=== PATIENT | female | born 1955 | race African-American/Black ===

== ENCOUNTER 2016-10-31 03:10 | Emergency (ER) | payer MEDICAID, OTHER ==
[~2016-10-31] VITALS: Ht 162.6 cm; Wt 81.6 kg
[~2016-10-31 03:10] MED LIST: ADVAIR 100-501 EACH INH; ALBUTEROL SULF8.5 GM INH; ANUSOL-HC25 MG RECTAL; CYCLOBENZAPRINE10 MG ORAL; IBUPROFEN600 M1 PO; IBUPROFEN600 MG ORAL; MUCINEX600 MG PO; NKM; NORCO 5-325 TA1 EAC1 ORAL; NORCO 5-325 TA1 EACH PO
--- NOTE | 2016-10-31 03:42 | Emergency Room Report ---
History of Present Illness General Chief Complaint: General Complaint Source: Patient Present Illness HPI Patient presents with body pain. The areas where she is affected is her upper back and lower back. She has nerve pain radiating down her right arm and also her right leg. She denies any fevers, chills, shortness of breath, chest pain, nausea, vomiting or diarrhea. She's had arthritis in the past. She's not taking any pain medicine aside from Excedrin. This helped minimally. She has not seen her doctor for a while. Pain rated at 10/10 burning aching radiating. She has sciatica and the lower back feels like this. She also complains about left lower quadrant pain is intermittent. She's had a high colonic the recent past. She denies any blood in her stool. She also complains of shaking associated with anxiety. This is intermittent also happens rarely. She has no medication for this. No trauma, saddle numbness, blood thinners, oncologic problems, incontinence. Allergies: Coded Allergies: CODEINE (Verified Allergy, Severe, 04/09/13) Patient History Past Medical History: see triage record Social History: Denies: alcohol use, drug use, smoking Social History Narrative brought by daughter Last Menstrual Period: hysterectomy Now: No Reviewed Nursing Documentation: PMH: Agreed, PSxH: Agreed Nursing Documentation-PMH Past Medical History: No History, Except For Hx Asthma: No Hx Cancer: No Hx Gastrointestinal Problems: Yes Review of Systems All Other Systems: negative except mentioned in HPI Physical Exam Vital Signs Date Time Temp Pulse Resp B/P Pulse Ox O2 Delivery O2 Flow Rate FiO2 10/31/16 03:21 97.5 84 16 127/85 99 Room Air Sp02 EP Interpretation: reviewed, normal General Appearance: well appearing, no apparent distress, alert, GCS 15, non- toxic Head: normocephalic, atraumatic Eyes: bilateral eye PERRL, bilateral eye normal inspection ENT: hearing grossly normal, normal voice, moist mucus membranes Neck: full range of motion, supple Respiratory: lungs clear, normal breath sounds, no respiratory distress, speaking full sentences, other - R upper back tenderness Cardiovascular #1: regular rate, rhythm Gastrointestinal: normal inspection, normal bowel sounds, non tender, soft, overweight Musculoskeletal: gait/station normal, normal range of motion, no calf tenderness, pelvis stable, other - muscle spasms paraspinous and R trapezius with TTP, able to sit and stand without difficulty Neurologic: alert, motor strength/tone normal, DTRs symmetric, sensory intact, cerebellar normal, normal gait, speech normal Psychiatric: mood/affect normal - slightly depressed Skin: no rash Medical Decision Making Diagnostic Impression: Primary Impression: Back pain Qualified Codes: M54.9 - Dorsalgia, unspecified ER Course Patient presents with body pain. She has run out of her pain medication at this time. She's mainly seeking a refill of analgesics. I discussed with the patient the need to have evaluation with colonoscopy and the need to follow up with her own doctor. No red flag symptoms or signs. No labs or imaging indicated. She will be treated for pain here. She was queried whether she's had problems with her heart the past. She states her heart stable. She is improved. CURES is negative. The patient is stable for outpatient observation and treatment. Last Vital Signs Date Time Temp Pulse Resp B/P Pulse Ox O2 Delivery O2 Flow Rate FiO2 10/31/16 04:44 97.5 89 16 132/93 99 Room Air Status: improved Disposition: HOME, SELF-CARE Condition: Improved Scripts Hydrocodone Bit/Acetaminophen 5-325* (NORCO 5-325*) 1 Each Tablet 1 TAB ORAL Q6H Y for For Pain, #10 TAB 0 Refills Prov: Axel Bautista M.D. 10/31/16 Ibuprofen* (MOTRIN*) 600 Mg Tablet 600 MG ORAL Q6H Y for For Pain, #20 TAB Prov: Axel Bautista M.D. 10/31/16 Referrals: [facility],REFERRING (PCP) Axel Bautista M.D. Oct 31, 2016 03:42
[2016-10-31] MEDS ORDERED: Norco 5mg/325mg tab ORAL ONE (03:45)
[2016-10-31] MEDS ORDERED: NORCO 5-325 TA1 EACH ORAL (04:17)
[2016-10-31] MEDS ORDERED: IBUPROFEN600 MG ORAL (04:17)
[2016-10-31 04:42] VITALS: BP 132/93
[2016-10-31 04:44] VITALS: BP 132/93
== END 2016-10-31 04:45 | disposition home or self-care (01) ==
LOC: EMR 03:33
DX: M54.9 Dorsalgia, unspecified (principal); Z88.6 Allergy status to analgesic agent; Z90.710 Acquired absence of both cervix and uterus; F41.9 Anxiety disorder, unspecified; M54.30 Sciatica, unspecified side; M62.830 Muscle spasm of back
CPT/HCPCS: 99284